=== PATIENT | male | born 1970 | race Caucasian/White ===

== ENCOUNTER 2019-06-14 11:51 | Emergency (ER) | payer BC ==
[2019-06-14 12:07] VITALS: BP 131/76; PULSE 83; TEMP 98.4; BMI 39.5
[2019-06-14 13:08] LABS: EOS % 2.9 % (0-4.5); HEMATOCRIT 45.1 % (35.4-49); HEMOGLOBIN 15.4 GM/dL (11.7-16.9); LYMPH % 36.2 % (8-40); MCH 29.8 pg (25.7-33.7); MCHC 34.1 g/dl (32.0-35.9); MEAN CELL VOLUME 87.5 fl (80-96); MEAN PLT VOLUME 9.4 fl (7.5-11.1); MONO % 10.9 % (3.8-10.2); PLATELET COUNT 193 K/MM3 (134-434); RBC 5.15 M/mm3 (4.00-5.60); RDW 13.4 % (11.9-15.9); WHITE BLOOD COUNT 5.9 K/mm3 (4.0-10.0)
--- NOTE | 2019-06-14 13:14 | PDOC ---
History of Present Illness - General Chief Complaint: Chest Pain Stated Complaint: CHEST PAIN Time Seen by Provider: 06/14/19 12:46 History Source: Patient Exam Limitations: No Limitations Past History - Past Medical History Allergies/Adverse Reactions: Allergies Allergy/AdvReac Type Severity Reaction Status Date / Time Penicillins Allergy Verified 06/14/19 12:07 Cardiac Disorders: Yes (costochondritis) COPD: No - Suicide/Smoking/Psychosocial Hx Smoking History: Never smoked *Physical Exam - Vital Signs Last Vital Signs Temp Pulse Resp BP Pulse Ox 98.4 F 83 18 131/76 99 06/14/19 12:03 06/14/19 12:03 06/14/19 12:03 06/14/19 12:03 06/14/19 12:03 - Physical Exam General Appearance: No: Apparent Distress Respiratory/Chest: positive: Chest Tender (+TTP along anterior chest wall), Lungs Clear, Normal Breath Sounds. negative: Respiratory Distress Cardiovascular: positive: Regular Rhythm, Regular Rate, S1, S2. negative: Murmur Gastrointestinal/Abdominal: positive: Normal Bowel Sounds, Soft. negative: Tender, Distended, Guarding, Rebound Extremity: negative: Pedal Edema, Calf Tenderness Neurologic: positive: Alert, Normal Mood/Affect Heart Score/ECG Review - History History: Slightly suspicious - Electrocardiogram EKG: Normal - Age Age: 45-65 - Risk Factors Risk Factors Heart Score: Yes Smoking History, Yes Hx Obesity Based on the list above the patient has:: 1-2 risk factors - Troponin Troponin: </= normal limit - Score Heart Score - Total: 2 ED Treatment Course - LABORATORY CBC & Chemistry Diagram: 06/14/19 12:55 06/14/19 12:55 - ADDITIONAL ORDERS Additional order review: Laboratory Results 06/14/19 12:55 Sodium 142 Potassium 4.0 Chloride 108 H Carbon Dioxide 28 Anion Gap 5 L BUN 12.2 Creatinine 1.0 Est GFR (CKD-EPI)AfAm 102.69 Est GFR (CKD-EPI)NonAf 88.61 Random Glucose 114 H Calcium 8.5 Troponin I < 0.02 06/14/19 12:55 RBC 5.15 MCV 87.5 MCHC 34.1 RDW 13.4 MPV 9.4 Neutrophils % 49.0 Lymphocytes % 36.2 Monocytes % 10.9 H Eosinophils % 2.9 Basophils % 1.0 - RADIOLOGY Radiology Studies Ordered: Category Date Time Status CHEST PA & LAT [RAD] Stat Radiology 06/14/19 12:54 Completed Medical Decision Making - Medical Decision Making 49 y/o M with hx of hypothyroid, GERD, hypertriglyceridemia, former smoker ( quit 2000, used to smoke 1.5 ppd x 16 years) presents with nonradiating substernal chest heaviness which started at 10 AM, worse with movement of body and pressing on chest wall. Patient took 162 mg ASA prior to coming here. Denies having this type of pain before. Denies fever, cough, sob, abd pain, n/v , dizziness, pedal edema, calf pain, recent travel. Denies drug use. Denies FH of CAD or NC. Had a negative stress test April 2017 EKG: NSR at 85 bpm, no ST-T changes Consider ACS; though could also be costochondritis given reproducible chest pain ; unlikely PE, PNA, aortic dissection Heart score of 2 Labs sent; CXR pending Will likely get repeat troponin (if initial negative) given sxs started 10 AM today 06/14/19 13:09 Initial trop neg CXR negative Will get repeat trop and EKG @ 4 PM 06/14/19 13:42 Patient signed out to [facility] Juan Pending repeat trop and EKG 06/14/19 15:53 *DC/Admit/Observation/Transfer Diagnosis at time of Disposition: Chest pain Qualifiers: Chest pain type: unspecified Qualified Code(s): R07.9 - Chest pain, unspecified - Referrals Referrals: Cody Nevarez [Primary Care Provider] - - Patient Instructions - Post Discharge Activity
[2019-06-14 13:38] LABS: ANION GAP 5 MMOL/L (8-16); BLOOD UREA NITROGEN 12.2 mg/dL (7-18); CALCIUM 8.5 mg/dL (8.5-10.1); CHLORIDE 108 mmol/L (98-107); CO2 28 mmol/L (21-32); GLUCOSE,RANDOM 114 mg/dL (74-106); SODIUM 142 mmol/L (136-145)
--- NOTE | 2019-06-14 16:51 | PDOC ---
*Physical Exam - Vital Signs Last Vital Signs Temp Pulse Resp BP Pulse Ox 98.4 F 83 18 131/76 99 06/14/19 12:03 06/14/19 12:03 06/14/19 12:03 06/14/19 12:03 06/14/19 12:03 - Physical Exam Comments: 06/14/19 16:48 Sign-out received from outgoing ER provider Tonya. Pt interviewed and examined. Ancillary studies reviewed. Awaiting repeat EKG and trop. EKG - sinus bradycardia, no STEMI. pending repeat trop. ED Treatment Course - LABORATORY CBC & Chemistry Diagram: 06/14/19 12:55 06/14/19 12:55 - ADDITIONAL ORDERS Additional order review: Laboratory Results 06/14/19 12:55 Sodium 142 Potassium 4.0 Chloride 108 H Carbon Dioxide 28 Anion Gap 5 L BUN 12.2 Creatinine 1.0 Est GFR (CKD-EPI)AfAm 102.69 Est GFR (CKD-EPI)NonAf 88.61 Random Glucose 114 H Calcium 8.5 Troponin I < 0.02 06/14/19 12:55 RBC 5.15 MCV 87.5 MCHC 34.1 RDW 13.4 MPV 9.4 Neutrophils % 49.0 Lymphocytes % 36.2 Monocytes % 10.9 H Eosinophils % 2.9 Basophils % 1.0 *DC/Admit/Observation/Transfer Diagnosis at time of Disposition: Chest pain Qualifiers: Chest pain type: unspecified Qualified Code(s): R07.9 - Chest pain, unspecified - Discharge Dispostion Disposition: HOME Condition at time of disposition: Stable Decision to Admit order: No - Prescriptions Prescriptions: Naproxen Sodium [Naproxen Sodium Cr] 375 mg PO BID #20 tbmp.24hr - Referrals Referrals: Cody Nevarez [Primary Care Provider] - Paddy Padilla MD [Staff Physician] - - Patient Instructions Printed Discharge Instructions: DI for Chest Pain Additional Instructions: Please take medications as prescribed. Follow up with your primary care doctor next week. If your symptoms persist, please follow up with a shale miner for further testing and evaluation of your chest discomfort. If you develop any worsening chest pain or shortness of breath; sudden radiating pain to your left jaw, shoulder, or arm; or any new or worsening symptoms, please return to the ER. - Post Discharge Activity
--- NOTE | 2019-06-15 17:44 | EKG ---
Test Reason : Blood Pressure : / mmHG Vent. Rate : 057 BPM Atrial Rate : 057 BPM P-R Int : 152 ms QRS Dur : 072 ms QT Int : 458 ms P-R-T Axes : 044 -11 022 degrees QTc Int : 445 ms SINUS BRADYCARDIA POSSIBLE INFERIOR INFARCT , AGE UNDETERMINED ABNORMAL ECG WHEN COMPARED WITH ECG OF 14-JUN-2019 11:48, VENT. RATE HAS DECREASED BY 28 BPM BORDERLINE CRITERIA FOR INFERIOR INFARCT ARE NOW PRESENT Confirmed by MARY ANNE TREADWELL MD ([id number]) on 06/15/2019 5:44:26 PM Referred By: Confirmed By:MARY ANNE TREADWELL MD
--- NOTE | 2019-06-15 17:45 | EKG ---
Test Reason : Blood Pressure : / mmHG Vent. Rate : 085 BPM Atrial Rate : 085 BPM P-R Int : 140 ms QRS Dur : 072 ms QT Int : 408 ms P-R-T Axes : 058 -04 047 degrees QTc Int : 485 ms NORMAL SINUS RHYTHM PROLONGED QT ABNORMAL ECG NO PREVIOUS ECGS AVAILABLE Confirmed by MILE POWELL, MARY ANNE ([id number]) on 06/15/2019 5:45:05 PM Referred By: Confirmed By:MARY ANNE TREADWELL MD
== END 2019-06-14 17:45 | disposition home or self-care (01) ==
LOC: JER 11:51
DX: R07.9 Chest pain, unspecified (principal); E03.9 Hypothyroidism, unspecified; E78.5 Hyperlipidemia, unspecified; Z87.891 Personal history of nicotine dependence
CPT/HCPCS: 36415; 71046-TC-FY; 80048; 84484; 85025; 93005; 93010; 99283-25